=== PATIENT | female | born 1995 | race Caucasian/White ===

== ENCOUNTER 2016-11-17 20:52 | Emergency (ER) | payer BC ==
[~2016-11-17] VITALS: Ht 172.7 cm; Wt 71.1 kg
[2016-11-17 21:01] VITALS: TEMP 36.9; Ht 172.7 cm; Wt 71.1 kg
[2016-11-17] MEDS ORDERED: CEPHALEXIN MONOHYDRATE 250 MG CAP PO STA (21:31)
[2016-11-17] MEDS ORDERED: PRED20TA2 PO (21:32)
[2016-11-17] MEDS ORDERED: CEPH500C PO (21:33)
[2016-11-17] MEDS ORDERED: CEPHALEXIN 500MG HOME PACK 1 EA BTL PO STA (21:33)
--- NOTE | 2016-11-17 21:33 | EMERGENCY ROOM VISIT NOTE ---
History First contact with patient: 21:15 Chief Complaint: ALLERGIC REACTION Stated Complaint: REACTION TO BEE STING,SWELLING,NUMBNESS,PAIN,RASH History of Present Illness The patient is a 21 year old female who presents to the Emergency Room via private vehicle with complaints of "reaction to bee sting, swelling, numbness, pain, rash". The patient states that she was stung by a bee on the left lower leg about 5 days ago while hiking. She states that her friend was also stung. Since that time she's been doing well, but the area is now more red, starting to swell, has itching, pain and the redness is now worse. She denies any trouble breathing, chest pain or shortness of breath. She denies any fevers or chills. She denies chance of . She has never had this happen before. Review of Systems A complete 6-point Review of Systems was discussed with the patient, with pertinent positives and negatives listed in the History of Present Illness. All remaining Review of Systems questions can be considered negative unless otherwise specified. Past Medical/Surgical History No pertinent Family History High blood pressure, cancer. Social History Smoking Status: Never Smoker Patient lives alone, is currently employed. She denies tobacco and alcohol use. Current/Historical Medications Scheduled Cephalexin Monohydrate (Keflex), 500 MG PO QID Prednisone (Prednisone Tab), 2 TAB PO DAILY Physical Exam Vital Signs Date Time Temp Pulse Resp B/P (MAP) Pulse Ox O2 Delivery O2 Flow Rate FiO2 11/17/16 21:55 66 15 111/62 100 11/17/16 21:30 100 Room Air 11/17/16 21:01 36.9 66 18 110/65 100 Room Air Physical Exam VITAL SIGNS - Vital signs and nursing notes were reviewed. Stable. GENERAL - 21-year-old female appearing her stated age who is in no acute distress. Communicates well with provider and answers questions appropriately. SKIN - there is a small 5 cm x 6 cm erythematous and slightly raised region on the patient's left lateral/posterior distal calf region. This is of the left leg. There is no drainage noted. There is a small punctate region and is erythematous and believe to be the area where she was stung. The erythema is near this region. HEAD - NC/AT. EYES - Sclera anicteric. EARS - No deformities of external structures noted on gross examination bilaterally. NOSE - Midline and without cyanosis. MOUTH/OROPHARYNX - Without perioral cyanosis. EXTREMITIES - No clubbing or peripheral cyanosis. No pretibial edema present. Tenderness to palpation overlying the erythema. +5/5 strength noted in UE/LE bilaterally. No lymphangitic streaking. Medical Decision & Procedures Medications Administered Medications (Trade) Dose Ordered Sig/Tad Route Start Time Stop Time Status Last Admin Dose Admin Prednisone (PredniSONE TAB) 40 mg NOW STAT PO 11/17/16 21:31 11/17/16 21:32 DC 11/17/16 21:49 40 MG Diphenhydramine HCl (Benadryl Cap) 25 mg NOW STAT PO 11/17/16 21:31 11/17/16 21:32 DC 11/17/16 21:49 25 MG Cephalexin Monohydrate (Keflex Cap) 500 mg NOW STAT PO 11/17/16 21:31 11/17/16 21:32 DC 11/17/16 21:49 500 MG Cephalexin Monohydrate (Keflex 500MG Home Pack) 1 homepack NOW STAT PO 11/17/16 21:33 11/17/16 21:35 DC 11/17/16 21:50 1 HOMEPACK Medical Decision Patient was seen and evaluated as above. She presents to us today with left leg swelling/redness status post bee sting 5 days ago. I suspect she is likely experiencing a localized reaction secondary to the venom. The erythema is not consistent with that of sialitis, and I believe it to be a histamine response. Regardless, I will treat for any underlying potential infection therefore she' ll be given Keflex, but also prednisone and instructed to take Benadryl and Zyrtec for the reaction. She is to return with worsening. I believe she is stable for outpatient management, and believe that the above-mentioned medications will help with the reaction. There is no evidence of airway compromise or anaphylaxis. She is otherwise healthy. Tetanus is up-to-date. She was educated upon management, educated upon worrisome symptoms in which to return, had questions answered prior to discharge and was discharged home in good condition. In evaluation treatment this patient following differential diagnoses were entertained: Delayed histamine response, cellulitis, allergic reaction, among others. Impression Primary Impression: Allergic reaction Departure Information Dispostion Home / Self-Care Condition GOOD Prescriptions Cephalexin Monohydrate (Keflex) 500 Mg Cap 500 MG PO QID for 6 Days, #24 CAP Prov: Femi Argueta PA-C 11/17/16 Prednisone (Prednisone Tab) 20 Mg Tab 2 TAB PO DAILY for 4 Days, #8 TAB Prov: Femi Argueta PA-C 11/17/16 Referrals No Doctor, Assigned (PCP) Patient Instructions My [facility] Additional Instructions You have been treated in the Emergency Department for an Allergic Reaction. You have been treated and monitored in the Emergency Department appropriately. You should take Benadryl (diphenhydramine) 25- mg orally every 6 hours for the next 7 days. This medication is [id number] and you will NOT need a prescription to purchase this at your local pharmacy. You should continue taking the Benadryl for the COMPLETION of the 5-7 days. This is to prevent a rebound allergic reaction in the event that allergens are still present in your system. You should take Zantac (ranitidine) 75 mg orally once daily for the next 7 days. This medication is [id number] and you will NOT need a prescription to purchase this at your local pharmacy. You should continue taking the Zantac for the COMPLETION of the 7 days. This is to prevent a rebound allergic reaction in the event that allergens are still present in your system. Keflex 500mg every 6 hours for any potential infection You have been prescribed Prednisone 40 mg to be taken orally once a day for the next 5 days. This is an anti-inflammatory medicine to be used to help minimize your symptoms. You should take the COMPLETE course of the medication. Start tomorrow night. As with every Emergency Department visit, you should follow-up with your primary care provider in 2-3 days for reevaluation. Return to the Emergency Department if your current symptoms worsen despite treatment course outlined above, or if you develop any of the following symptoms : wheezing, tongue or face swelling, tightness in your throat, shortness of breath, or fainting.
[2016-11-17 21:55] VITALS: BP 111/62; PULSE 66; O2SAT 100
== END 2016-11-17 21:55 | disposition home or self-care (01) ==
LOC: C.EDB 20:54
DX: T63.441A Toxic effect of venom of bees, accidental (unintentional), initial encounter (principal); Z82.49 Family history of ischemic heart disease and other diseases of the circulatory system; Z80.9 Family history of malignant neoplasm, unspecified

== ENCOUNTER 2017-01-09 15:58 | Emergency (ER) | payer BC ==
[~2017-01-09] VITALS: Ht 172.7 cm; Wt 70.7 kg
[2017-01-09 16:05] VITALS: TEMP 36.5; Ht 172.7 cm; Wt 70.7 kg
[2017-01-09] MEDS ORDERED: ACETAMINOPHEN 500 MG TAB PO STA (16:42)
[2017-01-09] MEDS ORDERED: ONDANSETRON INJ 2 MG/ML 2 ML VIAL IV STA (16:42)
[2017-01-09] MEDS ORDERED: KETOROLAC TROMETHAMINE 30 MG/ML VIAL IV STA (16:42)
[2017-01-09] MEDS ORDERED: SODIUM CHLORIDE 0.9% 500ML 500 ML IV STA (16:55)
[2017-01-09] MEDS ORDERED: IBUP-1050 PO (17:10)
[2017-01-09] MEDS ORDERED: ACET-1256 PO (17:10)
[2017-01-09 17:21] LABS: BASO % 0.3 %; BASO ABS # 0.03 K/uL (0-0.2); COMPLETE YES; EOS % 0.1 %; HEMATOCRIT 38.3 % (37-47); IG% 0.1 %; LYMPH % 12.3 %; LYMPH ABS # 1.08 K/uL (1.2-3.4); MEAN CELL VOLUME 86.7 fL (80-100); MEAN CORPUSCULAR HEMOGLOBIN 28.5 pg (25-34); MEAN CORPUSCULAR HGB CONC 32.9 g/dl (32-36); MEAN PLATELET VOLUME 10.7 fL (7.4-10.4); MONO % 4.2 %; PLATELET COUNT 197 K/uL (130-400); RED BLOOD COUNT 4.42 M/uL (4.2-5.4); WHITE BLOOD COUNT 8.77 K/uL (4.8-10.8)
[2017-01-09 17:28] LABS: URINE APPEARANCE CLEAR (CLEAR); URINE BILIRUBIN NEG (NEG); URINE COLOR YELLOW; URINE EPITHELIAL CELL AUTO >30 /lpf (0-5); URINE NITRITE NEG (NEG); URINE PH 7.5 (4.5-7.5); URINE SPECIFIC GRAVITY 1.029 (1.000-1.030); UROBILINOGEN NEG (NEG); ZZUR CULT IF INDIC CLEAN CATCH NO
[2017-01-09 17:30] LABS: MANUAL MICROSCOPIC REQUIRED? NO; REVIEW REQ? NO
[2017-01-09 17:41] LABS: BUN/CREATININE RATIO 18.8 (10-20); CALCIUM 8.7 mg/dl (8.5-10.1); CREATININE 0.67 mg/dl (0.60-1.20); POTASSIUM 3.6 mmol/L (3.5-5.1)
[2017-01-09 18:18] VITALS: PULSE 54; O2SAT 100
--- NOTE | 2017-01-09 19:27 | DIAGNOSTIC IMAGING REPORT ---
PELVIC COMPLETE NON OB, TRANSVAG-FEMALE PELVIS CLINICAL HISTORY: 21 years-old Female presenting with LLQ abd pain, ovarian cyst, last menstrual period 01/09/2017. TECHNIQUE: Real-time grayscale and color and spectral Doppler ultrasound imaging of the pelvis was performed first using a transabdominal probe and subsequently transvaginal for better characterization. COMPARISON: None. FINDINGS: Uterus: Normal. Anteverted. The uterus measures 7.7 x 3.4 x 5.0 cm. Endometrial stripe measures 3 mm in thickness. Endometrium normal-appearing. Cervix normal. Right adnexa: Right ovary normal. Right ovary measures 3.0 x 2.0 x 3.0 cm. Normal color Doppler flow and arterial and venous waveforms within the ovarian parenchyma. Left adnexa: Left ovary normal. Left ovary measures 2.6 x 1.9 x 2.6 cm. Normal color Doppler flow and arterial and venous waveforms within the ovarian parenchyma. In the left adnexa and extending to the midline are 2 anechoic cystic appearing structures that are distinctly separate from the left ovary and do not clearly demonstrate a cogwheel mucosal pattern or a connection to one another to suggest definitively a fallopian tube morphology. The largest of these measures 3.3 cm. Other: Trace free fluid, likely physiologic. IMPRESSION: 1. No evidence of ovarian torsion. Normal ovaries and uterus. However, 2 cystic structures in the left adnexa appear distinctly separate from the left ovary and do not have a morphology that is characteristic of a dilated fallopian tube. Although hydrosalpinx remains a differential consideration, these could represent para ovarian cyst among other diagnostic considerations. Gynecologic consultation and follow-up ultrasound in 4-6 weeks recommended to confirm stability and/or contrast enhanced pelvic MR. Electronically signed by: Ehsan Dickerson M.D. 01/09/2017 7:25 PM Dictated Date/Time: 01/09/2017 7:20 PM
--- NOTE | 2017-01-09 20:16 | EMERGENCY ROOM VISIT NOTE ---
History Report prepared by Joseph: Mikal Escobar Under the Supervision of: Dr. Kate Hicks M.D. First contact with patient: 16:42 Chief Complaint: ABDOMINAL PAIN Stated Complaint: LLQ ABDOMINAL PAIN Nursing Triage Summary: having lower abdominal pain. period began today. "I have never had cramps like this before." patient denies any chance of being History of Present Illness The patient is a 21 year old female who presents to the Emergency Room with complaints of constant left lower abdominal pain beginning shortly prior to arrival. She describes her pain as "sharp". She also complains of left leg numbness. The patient states that she began her menstrual period yesterday, but states that her symptoms to not feel like typical menstrual cramps. She denies chance of . She has a family history of ovarian cancer, and ovarian cyst. The patient notes that she recently flew back to [place] from home. She is not on control. Source of History: patient Onset: Shortly prior to arrival Position: abdomen (left lower) Quality: sharp Timing: constant Associated Symptoms: + numbness (left leg) Review of Systems See HPI for pertinent positives & negatives. A total of 10 systems reviewed and were otherwise negative. Past Medical & Surgical Medical Problems: (1) No Known Active Medical Problems Family History No pertinent family history stated. Social History Smoking Status: Never Smoker Marital Status: single Occupation Status: [employer] student Current/Historical Medications Scheduled Ondasetron Odt (Zofran Odt), 4 MG SL Q6H Scheduled PRN Acetaminophen (Tylenol), 1,000 MG PO UD PRN for Pain Hydrocodone/Acetaminophen 5MG/325MG ([place] 5MG/325MG), 1-2 TABLET PO Q4H PRN for Pain Ibuprofen (Advil), 400 MG PO UD PRN for Pain Allergies Coded Allergies: No Known Allergies (Unverified , 01/09/17) Physical Exam Vital Signs Date Time Temp Pulse Resp B/P (MAP) Pulse Ox O2 Delivery O2 Flow Rate FiO2 01/09/17 20:40 96/71 01/09/17 18:18 54 14 107/64 100 01/09/17 16:05 36.5 62 18 136/63 100 Room Air Physical Exam Vital signs reviewed. General: Well-appearing female, in no significant distress. HEENT: No scleral icterus, PERRLA, neck supple. Atraumatic. Cardiovascular: Regular rate and rhythm, no extra sounds. Pulmonary: Clear to auscultation bilaterally, normal work of breathing. Abdomen: Soft, nondistended, positive bowel sounds. Mild tenderness to the left lower quadrant. Pelvic: Normal female external genitalia. No lesions or discharge. No cervical motion tenderness. Musculoskeletal: Atraumatic, no peripheral edema. Neurologic: Patient awake alert and oriented x 3. Skin: Warm, dry, no rash Medical Decision & Procedures ER Provider Diagnostic Interpretation: Radiology results as stated below per my review and radiologist interpretation: PELVIC COMPLETE NON OB, TRANSVAG-FEMALE PELVIS FINDINGS: Uterus: Normal. Anteverted. The uterus measures 7.7 x 3.4 x 5.0 cm. Endometrial stripe measures 3 mm in thickness. Endometrium normal-appearing. Cervix normal. Right adnexa: Right ovary normal. Right ovary measures 3.0 x 2.0 x 3.0 cm. Normal color Doppler flow and arterial and venous waveforms within the ovarian parenchyma. Left adnexa: Left ovary normal. Left ovary measures 2.6 x 1.9 x 2.6 cm. Normal color Doppler flow and arterial and venous waveforms within the ovarian parenchyma. In the left adnexa and extending to the midline are 2 anechoic cystic appearing structures that are distinctly separate from the left ovary and do not clearly demonstrate a cogwheel mucosal pattern or a connection to one another to suggest definitively a fallopian tube morphology. The largest of these measures 3.3 cm. Other: Trace free fluid, likely physiologic. IMPRESSION: 1. No evidence of ovarian torsion. Normal ovaries and uterus. However, 2 cystic structures in the left adnexa appear distinctly separate from the left ovary and do not have a morphology that is characteristic of a dilated fallopian tube. Although hydrosalpinx remains a differential consideration, these could represent para ovarian cyst among other diagnostic considerations. Gynecologic consultation and follow-up ultrasound in 4-6 weeks recommended to confirm stability and/or contrast enhanced pelvic MR. Electronically signed by: Ehsan Dickerson M.D. 01/09/2017 7:25 PM Laboratory Results 01/09/17 17:05 Red Blood Count 4.42, Mean Corpuscular Volume 86.7, Mean Corpuscular Hemoglobin 28.5, Mean Corpuscular Hemoglobin Concent 32.9, Mean Platelet Volume 10.7, Neutrophils (%) (Auto) 83.0, Lymphocytes (%) (Auto) 12.3, Monocytes (%) (Auto) 4.2, Eosinophils (%) (Auto) 0.1, Basophils (%) (Auto) 0.3, Neutrophils # (Auto) 7.27, Lymphocytes # (Auto) 1.08, Monocytes # (Auto) 0.37, Eosinophils # (Auto) 0.01, Basophils # (Auto) 0.03 01/09/17 17:05 Test 01/09/17 17:05 White Blood Count 8.77 K/uL (4.8-10.8) Red Blood Count 4.42 M/uL (4.2-5.4) Hemoglobin 12.6 g/dL (12.0-16.0) Hematocrit 38.3 % (37-47) Mean Corpuscular Volume 86.7 fL (80-100) Mean Corpuscular Hemoglobin 28.5 pg (25-34) Mean Corpuscular Hemoglobin Concent 32.9 g/dl (32-36) Platelet Count 197 K/uL (130-400) Mean Platelet Volume 10.7 fL (7.4-10.4) Neutrophils (%) (Auto) 83.0 % Lymphocytes (%) (Auto) 12.3 % Monocytes (%) (Auto) 4.2 % Eosinophils (%) (Auto) 0.1 % Basophils (%) (Auto) 0.3 % Neutrophils # (Auto) 7.27 K/uL (1.4-6.5) Lymphocytes # (Auto) 1.08 K/uL (1.2-3.4) Monocytes # (Auto) 0.37 K/uL (0.11-0.59) Eosinophils # (Auto) 0.01 K/uL (0-0.5) Basophils # (Auto) 0.03 K/uL (0-0.2) RDW Standard Deviation 43.0 fL (36.4-46.3) RDW Coefficient of Variation 13.4 % (11.5-14.5) Immature Granulocyte % (Auto) 0.1 % Immature Granulocyte # (Auto) 0.01 K/uL (0.00-0.02) Urine Color YELLOW Urine Appearance CLEAR (CLEAR) Urine pH 7.5 (4.5-7.5) Urine Specific [place] 1.029 (1.000-1.030) Urine Protein NEG (NEG) Urine Glucose (UA) NEG (NEG) Urine Ketones 1+ (NEG) Urine Occult Blood NEG (NEG) Urine Nitrite NEG (NEG) Urine Bilirubin NEG (NEG) Urine Urobilinogen NEG (NEG) Urine Leukocyte Esterase TRACE (NEG) Urine WBC (Auto) 1-5 /hpf (0-5) Urine RBC (Auto) 0-4 /hpf (0-4) Urine Hyaline Casts (Auto) 1-5 /lpf (0-5) Urine Epithelial Cells (Auto) >30 /lpf (0-5) Urine Bacteria (Auto) NEG (NEG) Urine Test NEG (NEG) Anion Gap 7.0 mmol/L (3-11) Est Creatinine Clear Calc Drug Dose 135.1 ml/min Estimated GFR () 146.7 Estimated GFR (Non- 126.5 BUN/Creatinine Ratio 18.8 (10-20) Calcium Level 8.7 mg/dl (8.5-10.1) Total Bilirubin 0.7 mg/dl (0.2-1) Direct Bilirubin 0.1 mg/dl (0-0.2) Aspartate Amino Transf (AST/SGOT) 14 U/L (15-37) Alanine Aminotransferase (ALT/SGPT) 16 U/L (12-78) Alkaline Phosphatase 53 U/L (45-117) Total Protein 7.5 gm/dl (6.4-8.2) Albumin 4.1 gm/dl (3.4-5.0) Lipase 106 U/L (73-393) Date/Time Source Procedure Growth Status 01/09/17 19:50 Vaginal Swab Trichomonas Preparation - Final Complete Laboratory results per my review. Medications Administered Medications (Trade) Dose Ordered Sig/Tad Route Start Time Stop Time Status Last Admin Dose Admin Ondansetron HCl (Zofran Inj) 4 mg NOW STAT IV 01/09/17 16:42 01/09/17 16:43 DC 01/09/17 18:14 4 MG Ketorolac Tromethamine (Toradol Inj) 30 mg NOW STAT IV 01/09/17 16:42 01/09/17 16:43 DC 01/09/17 18:16 30 MG Sodium Chloride 500 ml @ 999 mls/hr Q31M STAT IV 01/09/17 16:55 01/09/17 17:25 DC 01/09/17 18:14 999 MLS/HR ED Course 1651: Past medical records reviewed. The patient was evaluated in room B4B. A complete history and physical examination was performed. Ordered Tylenol Tab 1000 mg PO, Toradol Inj 30 mg IV, Zofran Inj 4 mg IV. 1654: Ordered Sodium Chloride 500 ml @ 999 mls/hr IV. 1951: I conducted a pelvic exam on the patient. 2009: Upon reevaluation, the patient appeared to have improvement of her symptoms. I discussed findings with her. She verbalized agreement of the treatment plan. The patient was discharged home. Medical Decision Differential diagnosis: Etiologies such as appendicitis, diverticulitis, PUD, biliary pathology, UTI, pancreatitis, obstruction, mesenteric ischemia, aortic pathology, infections, inflammatory bowel disease, renal colic, as well as others were entertained. This patient was evaluated and appeared to be in some discomfort. IV access was obtained and laboratory work was drawn. The patient was given IV Toradol and IV Zofran. She was hydrated with normal saline solution. Pelvic ultrasound was performed and reveals 2 para ovarian cysts. Urinalysis was obtained and is negative. test is negative. Pelvic exam was performed and reveals no discharge or lesions. Cultures were obtained however according to the lab the swabs were switched and they were not able to be run. I do not think the patient is high risk for PID as she has not been sexually active in over one year. She was informed of the findings. Patient was advised of the situation with microbiology. She will follow-up with [facility] as soon as possible for further management. The patient was discharged with a copy of her ultrasound on disc and will return to the emergency department for worsening of symptoms or any medical concerns. Medication Reconcilliation Current Medication List: was personally reviewed by me Blood Pressure Screening Patient's blood pressure: Elevated blood pressure Blood pressure disposition: Elevated BP felt to be situational Impression Primary Impression: Cystic lesion of pelvic viscera Scribe Attestation The scribe's documentation has been prepared under my direction and personally reviewed by me in its entirety. I confirm that the note above accurately reflects all work, treatment, procedures, and medical decision making performed by me. Departure Information Dispostion Home / Self-Care Referrals No Doctor, Assigned (PCP) Forms HOME CARE DOCUMENTATION FORM, IMPORTANT VISIT INFORMATION Patient Instructions My [facility] Additional Instructions Diagnosis: Paraovarian cyst Please follow-up with [facility] in 4-6 weeks for repeat ultrasound and reevaluation. Ibuprofen 600 mg every 6 hours as needed for pain with food. Please drink plenty of clear fluids. Return to the ER for worsening of symptoms or any medical concerns.
[2017-01-09 20:40] VITALS: BP 96/71
[2017-01-10] MEDS ORDERED: HYDR-5688 PO (07:32)
[2017-01-10] MEDS ORDERED: ONDA4TAB10 SL (07:42)
--- NOTE | 2017-01-12 16:39 | Pharmacy Progress Note ---
ED Pharmacist Culture FollowUp Date of Service: Jan 12, 2017. Patient grew lactobacillus and Gardnerella in urine, which may be indicative of normal vaginal eboni. Called patient and she reported no increased discharge or other UTI symptoms, just pelvic pain which is most likely due to ovarian cyst. Discussed with Dr. Hicks and there is no need for antibiotics at this time as patient is asymptomatic from a UTI perspective.
== END 2017-01-09 20:40 | disposition home or self-care (01) ==
LOC: C.EDB 15:59
DX: N94.89 Other specified conditions associated with female genital organs and menstrual cycle (principal); N83.209 Unspecified ovarian cyst, unspecified side

== ENCOUNTER 2017-01-10 01:20 | Emergency (ER) | payer BC ==
[~2017-01-10] VITALS: Ht 172.7 cm; Wt 71.4 kg
[~2017-01-10 01:20] MED LIST: ACET-1256 PO; IBUP-1050 PO
[2017-01-10 01:33] VITALS: Ht 172.7 cm; Wt 71.4 kg
[2017-01-10] MEDS ORDERED: KETOROLAC TROMETHAMINE 15 MG/ML VIAL IV STA (02:10)
[2017-01-10 02:47] LABS: BASO % 0.4 %; BASO ABS # 0.04 K/uL (0-0.2); COMPLETE YES; EOS % 0.6 %; HEMATOCRIT 39.5 % (37-47); IG% 0.3 %; LYMPH % 14.8 %; LYMPH ABS # 1.66 K/uL (1.2-3.4); MEAN CELL VOLUME 86.8 fL (80-100); MEAN CORPUSCULAR HEMOGLOBIN 28.8 pg (25-34); MEAN CORPUSCULAR HGB CONC 33.2 g/dl (32-36); MEAN PLATELET VOLUME 11.2 fL (7.4-10.4); MONO % 7.7 %; NEUT % 76.2 %; PLATELET COUNT 210 K/uL (130-400); RED BLOOD COUNT 4.55 M/uL (4.2-5.4); WHITE BLOOD COUNT 11.24 K/uL (4.8-10.8)
[2017-01-10] MEDS ORDERED: ONDANSETRON INJ 2 MG/ML 2 ML VIAL IV STA (03:00)
[2017-01-10] MEDS ORDERED: MoRPHine SULFATE 10 MG/ML CARP/VIAL IV STA (03:00)
[2017-01-10 03:13] LABS: BUN/CREATININE RATIO 16.6 (10-20); CALCIUM 8.6 mg/dl (8.5-10.1); CREATININE 0.7 mg/dl (0.60-1.20); POTASSIUM 3.5 mmol/L (3.5-5.1)
[2017-01-10 03:16] LABS: ALB/GLOB RATIO 1.2 (0.9-2)
[2017-01-10 03:33] LABS: URINE APPEARANCE CLEAR (CLEAR); URINE BILIRUBIN NEG (NEG); URINE COLOR YELLOW; URINE NITRITE NEG (NEG); URINE PH 5.5 (4.5-7.5); URINE SPECIFIC GRAVITY 1.024 (1.000-1.030); UROBILINOGEN NEG (NEG); ZZUR CULT IF INDIC CLEAN CATCH YES
[2017-01-10 03:44] LABS: MANUAL MICROSCOPIC REQUIRED? NO; REVIEW REQ? NO
--- NOTE | 2017-01-10 04:20 | EMERGENCY ROOM VISIT NOTE ---
History First contact with patient: 01:48 Chief Complaint: ABDOMINAL PAIN Stated Complaint: PARAOVARIAN CYSTS,WORSENED PAIN,SEEN EARLIER TODAY Nursing Triage Summary: Pt here earlier and was dx'd with left ovarian cyst. Pt discharged and took ibuprofen as directed with no relief of pain. Pt currently rates pain @ 9/10 with nausea. History of Present Illness The patient is a 21 year old female who presents to the Emergency Room with complaints of left pelvic pain. The patient states that she was seen here earlier today due to the pain and diagnosed with paraovarian cyst. She states that the pain had improved when she went home, then returned. She took some ibuprofen but states the pain is still worsening. She reports associated nausea without vomiting. The pain started tonight. She states that the pain is now worse than it was before. She rates her discomfort an 8/10 and states the pain is sharp. She denies history of ovarian cysts. She denies urinary symptoms, fevers or changes in bowel movements. Review of Systems A complete 10 point review of systems was reviewed with the patient with pertinent positives and negatives as per history of present illness. All else were negative. Past Medical/Surgical History Medical Problems: (1) No Known Active Medical Problems Social History Smoking Status: Never Smoker Occupation Status: [employer] student Current/Historical Medications Scheduled Ondasetron Odt (Zofran Odt), 4 MG SL Q6H Scheduled PRN Acetaminophen (Tylenol), 1,000 MG PO UD PRN for Pain Hydrocodone/Acetaminophen 5MG/325MG ([place] 5MG/325MG), 1-2 TABLET PO Q4H PRN for Pain Ibuprofen (Advil), 400 MG PO UD PRN for Pain Physical Exam Vital Signs Date Time Temp Pulse Resp B/P (MAP) Pulse Ox O2 Delivery O2 Flow Rate FiO2 01/10/17 08:03 63 16 104/62 99 Room Air 01/10/17 07:30 64 16 108/64 97 Room Air 01/10/17 07:09 66 16 110/66 97 Room Air 01/10/17 06:00 56 16 105/66 97 Room Air 01/10/17 05:05 58 16 106/69 99 Room Air 01/10/17 03:17 57 18 122/51 99 Room Air 01/10/17 01:33 36.9 71 18 116/76 98 Room Air Physical Exam VITALS: Vitals are noted on the nurse's note and reviewed by myself. Vital signs stable. GENERAL: This is a 21-year-old female, tearful, appears to be in pain, anxious appearing, well-developed well-nourished. HEART: Regular rate and rhythm without murmurs gallops or rubs. LUNGS: Clear to auscultation bilaterally without wheezes, rales or rhonchi. ABDOMEN: Positive bowel sounds x 4. Soft, minimal tenderness in the left lower quadrant.. No guarding rebound tenderness. NEURO: Patient was alert and oriented to person place and time. Medical Decision & Procedures ER Provider Diagnostic Interpretation: US PELVIC/ENDOVAG: Blood flow seen to the bilateral ovaries. Small amount of complex free fluid. In the left adnexa is a mass estimated to measure 6.7 cm in maximum dimension which has 2 separate cysts each measuring about 3 cm in size. Present on prior. If further imaging desired, could further characterize with MRI as discussed on prior. Also, [employer] consult suggested as discussed on previous. Radiologist: Junior Cleaning MD Laboratory Results 01/10/17 02:35 Red Blood Count 4.55, Mean Corpuscular Volume 86.8, Mean Corpuscular Hemoglobin 28.8, Mean Corpuscular Hemoglobin Concent 33.2, Mean Platelet Volume 11.2, Neutrophils (%) (Auto) 76.2, Lymphocytes (%) (Auto) 14.8, Monocytes (%) (Auto) 7.7, Eosinophils (%) (Auto) 0.6, Basophils (%) (Auto) 0.4, Neutrophils # (Auto) 8.57, Lymphocytes # (Auto) 1.66, Monocytes # (Auto) 0.87, Eosinophils # (Auto) 0.07, Basophils # (Auto) 0.04 01/10/17 02:35 Test 01/10/17 02:35 01/10/17 03:15 White Blood Count 11.24 K/uL (4.8-10.8) Red Blood Count 4.55 M/uL (4.2-5.4) Hemoglobin 13.1 g/dL (12.0-16.0) Hematocrit 39.5 % (37-47) Mean Corpuscular Volume 86.8 fL (80-100) Mean Corpuscular Hemoglobin 28.8 pg (25-34) Mean Corpuscular Hemoglobin Concent 33.2 g/dl (32-36) Platelet Count 210 K/uL (130-400) Mean Platelet Volume 11.2 fL (7.4-10.4) Neutrophils (%) (Auto) 76.2 % Lymphocytes (%) (Auto) 14.8 % Monocytes (%) (Auto) 7.7 % Eosinophils (%) (Auto) 0.6 % Basophils (%) (Auto) 0.4 % Neutrophils # (Auto) 8.57 K/uL (1.4-6.5) Lymphocytes # (Auto) 1.66 K/uL (1.2-3.4) Monocytes # (Auto) 0.87 K/uL (0.11-0.59) Eosinophils # (Auto) 0.07 K/uL (0-0.5) Basophils # (Auto) 0.04 K/uL (0-0.2) RDW Standard Deviation 43.0 fL (36.4-46.3) RDW Coefficient of Variation 13.6 % (11.5-14.5) Immature Granulocyte % (Auto) 0.3 % Immature Granulocyte # (Auto) 0.03 K/uL (0.00-0.02) Anion Gap 6.0 mmol/L (3-11) Est Creatinine Clear Calc Drug Dose 129.3 ml/min Estimated GFR () 144.6 Estimated GFR (Non- 124.7 BUN/Creatinine Ratio 16.6 (10-20) Calcium Level 8.6 mg/dl (8.5-10.1) Total Bilirubin 0.7 mg/dl (0.2-1) Aspartate Amino Transf (AST/SGOT) 12 U/L (15-37) Alanine Aminotransferase (ALT/SGPT) 16 U/L (12-78) Alkaline Phosphatase 55 U/L (45-117) Total Protein 7.4 gm/dl (6.4-8.2) Albumin 4.0 gm/dl (3.4-5.0) Globulin 3.4 gm/dl (2.5-4.0) Albumin/Globulin Ratio 1.2 (0.9-2) Urine Color YELLOW Urine Appearance CLEAR (CLEAR) Urine pH 5.5 (4.5-7.5) Urine Specific [place] 1.024 (1.000-1.030) Urine Protein NEG (NEG) Urine Glucose (UA) NEG (NEG) Urine Ketones NEG (NEG) Urine Occult Blood 3+ (NEG) Urine Nitrite NEG (NEG) Urine Bilirubin NEG (NEG) Urine Urobilinogen NEG (NEG) Urine Leukocyte Esterase SMALL (NEG) Urine WBC (Auto) 10-30 /hpf (0-5) Urine RBC (Auto) >30 /hpf (0-4) Urine Hyaline Casts (Auto) 0 /lpf (0-5) Urine Epithelial Cells (Auto) 10-20 /lpf (0-5) Urine Bacteria (Auto) NEG (NEG) Medications Administered Medications (Trade) Dose Ordered Sig/Tad Route Start Time Stop Time Status Last Admin Dose Admin Ketorolac Tromethamine (Toradol Inj) 15 mg NOW STAT IV 01/10/17 02:10 01/10/17 02:11 DC 01/10/17 02:36 15 MG Morphine Sulfate (MoRPHine SULFATE INJ) 6 mg NOW STAT IV 01/10/17 03:00 01/10/17 03:01 DC 01/10/17 03:35 6 MG Ondansetron HCl (Zofran Inj) 4 mg NOW STAT IV 01/10/17 03:00 01/10/17 03:01 DC 01/10/17 03:33 4 MG Morphine Sulfate (MoRPHine SULFATE INJ) 4 mg NOW STAT IV 01/10/17 05:23 01/10/17 05:24 DC 01/10/17 05:55 4 MG ED Course The patient was evaluated as above. Labs were drawn and IV access was obtained. Patient was medicated with 30 mg Toradol IV patient was reevaluated and had no relief of her pain. She was given a dose of IV morphine. Pelvic ultrasound was performed and read by radiology as above. Patient states she is having some increased pain after the ultrasound. She was given an additional dose of morphine. Patient was reevaluated and findings were discussed. She is feeling much better at this time. Case was discussed with Dr. Javed of [facility]. She recommends office follow-up. I had a lengthy conversation with the patient's mother regarding the patient's visit and treatment plan. Discharge instructions were reviewed with the patient. The patient verbalized understanding of my assessment and treatment plan and was discharged home in good condition. Medical Decision Differential diagnosis includes ovarian cyst, ovarian torsion, ectopic , kidney stone, appendicitis, gastroenteritis, among others. The patient is a 21-year-old female who presents today complaining of worsening left pelvic pain. The patient was seen in the emergency department earlier in the day for this pain as well. She had an ultrasound which showed 2 left paraovarian cysts. Patient is complaining of worsening pain at this time. She does have a mild leukocytosis which is likely secondary to stress reaction. She has a nontender abdomen. She was complaining of significant pain and was tearful and appeared to be in distress on initial examination. She was given Toradol and morphine and eventually have some relief of her pain. A repeat ultrasound was performed due to patient's level of pain and this showed similar findings to previous. There was no evidence of ovarian torsion. The patient was reassured. I had a lengthy discussion with the patient's mother regarding the findings. The case was discussed with [facility] squadron worker, who recommended office. The patient was encouraged to continue ibuprofen for pain and was given a small amount of [place] to be used for breakthrough pain. The patient's case was reviewed with Dr. Mahoney, ED attending physician, who agreed with my assessment and treatment plan. Based on the patient's presentation and work up, I feel the patient is stable for outpatient treatment. The patient was educated to return to the emergency department for any worsening of their current condition or new/concerning symptoms. She will follow up with [facility]. [place] Drug Monitoring Program Search Results: patient reviewed within database, no issues identified Medication Reconcilliation Current Medication List: was personally reviewed by me Blood Pressure Screening Patient's blood pressure: Normal blood pressure Impression Primary Impression: Pelvic cyst Departure Information Dispostion Home / Self-Care Condition GOOD Prescriptions Ondasetron Odt (ZOFRAN ODT) 4 Mg Tab 4 MG SL Q6H for Nausea, #10 TAB Prov: Sarai Isabel PA-C 01/10/17 Hydrocodone/Acetaminophen 5MG/325MG ([place] 5MG/325MG) Tab 1-2 TABLET PO Q4H Y for Pain, #15 TAB For Initial Treatment Prov: Sarai Isabel PA-C 01/10/17 Referrals [facility] (PCP) Lis Javed D.O. Patient Instructions My [facility] Additional Instructions You have been treated in the Emergency Department for your Abdominal Pain. Laboratory results and imaging studies have ruled out any emergent causes for your abdominal pain which would warrant admission or surgery. You have been prescribed [place] to be used for pain control. This is a narcotic medication. You cannot drive or consume alcohol while on this medicine. This medicine should only be used for pain that cannot be controlled with over-the- counter pain medicines. You have been prescribed Zofran to be used for any nausea or vomiting. Take as prescribed. For pain control, you can use the following unhr-lal-bkfwrok medicines (if >12 yo): - Regular strength (325mg/tab) Tylenol (acetaminophen) 2 tabs every 4-6 hours as needed. Do not exceed 12 tablets in a 24 hour period. Avoid taking more than 4 grams (4000 mg) of Tylenol per day. This includes any other sources of acetaminophen you may take on a regular basis. - Regular strength (200 mg/tab) Advil (ibuprofen) 1-2 tabs every 4-6 hours as needed. Do not exceed a dose of 3200 mg per day. Drink plenty of water and stay well hydrated. As with any trip to the Emergency Department, you should follow-up with your Primary Care Provider from today's visit. You may call [facility] (Dr. Javed's office) to schedule follow up locally. Return to the emergency department if your symptoms persist despite treatment plan outlined above or if the following symptoms occur: worsening pain, vomiting , fever, or any other new/concerning symptoms.
[2017-01-10] MEDS ORDERED: MoRPHine SULFATE 4 MG/ML 1 ML CARP\\VIAL IV STA (05:23)
[2017-01-10] MEDS ORDERED: HYDR-5688 PO (07:32)
[2017-01-10] MEDS ORDERED: ONDA4TAB10 SL (07:42)
--- NOTE | 2017-01-10 08:05 | DIAGNOSTIC IMAGING REPORT ---
PELVIC ULTRASOUND, TRANSABDOMINAL AND TRANSVAGINAL HISTORY: Left lower quadrant abdominal pain. COMPARISON: Pelvic ultrasound 01/09/2017. FINDINGS: Uterus: Unremarkable. Endometrial stripe: 5 mm. Right ovary: Normal in size and demonstrates normal color flow. Left ovary: Normal in size and demonstrates normal color flow. Miscellaneous:Small amount of complex fluid within the pelvis. There is again noted a 6.7 x 3.0 x 4.0 cm masslike abnormality within the left adnexa containing 2 cysts which measure 3 cm. This appears to be separate from the left ovary. IMPRESSION: 1. The uterus and ovaries appear unremarkable. 2. There is again noted a 6.7 cm cystic mass within the left adnexa which appears separate from the left ovary. This is unchanged from the prior study. A contrast enhanced CT is recommended for further evaluation. Please correlate with a test to exclude the less likely possibility of an ectopic . 3. Small amount of complex fluid suggestive of hemoperitoneum. Electronically signed by: Toby Westbrook M.D. 01/10/2017 8:03 AM Dictated Date/Time: 01/10/2017 7:58 AM
[2017-01-10 08:06] VITALS: BP 104/62; PULSE 63; TEMP 36.9; O2SAT 99
== END 2017-01-10 08:14 | disposition home or self-care (01) ==
LOC: C.EDB 01:22 → C.EDA 08:14
DX: N83.8 Other noninflammatory disorders of ovary, fallopian tube and broad ligament (principal)

== ENCOUNTER 2017-01-12 18:50 | Emergency (ER) | payer BC ==
[~2017-01-12] VITALS: Ht 172.7 cm; Wt 72.1 kg
[~2017-01-12 18:50] MED LIST changes: +HYDR-5688 PO; +ONDA4TAB10 SL
[2017-01-12 18:52] VITALS: TEMP 36.8; Ht 172.7 cm; Wt 72.1 kg
--- NOTE | 2017-01-12 19:25 | EMERGENCY ROOM VISIT NOTE ---
History First contact with patient: 18:58 Chief Complaint: ABDOMINAL PAIN Stated Complaint: LOWER ABDOMINAL PAIN,ULTRASOUND,PARAOVARIUAN CYST Nursing Triage Summary: Pt reports left sided ovarian cysts. States pain is tolerable at 4/10 while on narcotics but severe when off. Pt currently taking norco to manage pain. Called OB/GYNs office and told to come to ER for repeat ultrasound to determine if pt will require surgery. History of Present Illness The patient is a 21 year old female who presents to the Emergency Room with complaints of ongoing LLQ pain. Patient has been here in the last few days and was found to have a large para-ovarian cyst in the LLQ. Per patient, Dr. Javed had called her earlier today and said she could either return to the ED to have repeat scans and possible surgery in the next few days, or to have scheduled surgery on Jan 19. Patient decided that since her pain is still severe without pain medications, she opted to have repeat scans and possible surgery as soon as possible. Review of Systems Constitutional: No fever, No chills, No sweats, No weight loss, No weakness , No fatigue, No problem reported Respiratory: No cough, No sputum, No wheezing, No shortness of breath, No dyspnea on exertion, No dyspnea at rest, No hemoptysis, No problem reported Cardiovascular: No chest pain, No orthopnea, No PND, No edema, No claudication, No palpitations, No problem reported Abdomen: + pain, No nausea, No vomiting, No diarrhea, No constipation, No GI bleeding, No problem reported Genitourinary - Female: No dysuria, No urinary frequency, No urinary urgency , No urinary incontinence, No urinary retention, No hematuria, No dysmenorrhea, No menorrhagia, No metrorrhagia, No rash, No vaginal bleeding, No vaginal discharge, No vaginal itching, No vulvodynia, No , No problem reported Past Medical/Surgical History Medical Problems: (1) Adnexal mass (2) Ovarian cyst Social History Smoking Status: Never Smoker Occupation Status: [employer] student Current/Historical Medications Scheduled Ondasetron Odt (Zofran Odt), 4 MG SL Q6H Scheduled PRN Acetaminophen (Tylenol), 1,000 MG PO UD PRN for Pain Hydrocodone/Acetaminophen 5MG/325MG ([place] 5MG/325MG), 1-2 TABLET PO Q4H PRN for Pain Ibuprofen (Advil), 400 MG PO UD PRN for Pain Physical Exam Vital Signs Date Time Temp Pulse Resp B/P (MAP) Pulse Ox O2 Delivery O2 Flow Rate FiO2 01/12/17 22:13 63 15 132/69 98 Room Air 01/12/17 20:18 55 18 110/70 100 Room Air 01/12/17 18:52 36.8 98 18 116/67 98 Room Air Pain Rating (0-10): 4 Physical Exam GENERAL: Awake, alert, well-appearing, in no distress HENT: Normocephalic, atraumatic. Oropharynx unremarkable. EYES: Normal conjunctiva. Sclera non-icteric. NECK: Supple. No nuchal rigidity. FROM. No JVD. RESPIRATORY: Clear to auscultation. CARDIAC: Regular rate, normal rhythm. Extremities warm and well perfused. Pulses equal. ABDOMEN: Soft, non-distended. tenderness to palpation in LLQ and keisha- umbilically. No rebound or guarding. No masses. RECTAL: Deferred. MUSCULOSKELETAL: Chest examination reveals no tenderness. The back is symmetrical on inspection without obvious abnormality. There is no CVA tenderness to palpation. No joint edema. LOWER EXTREMITIES: Calves are equal size bilaterally and non-tender. No edema. No discoloration. NEURO: Normal sensorium. No sensory or motor deficits noted. SKIN: No rash or jaundice noted. Medical Decision & Procedures ER Provider Diagnostic Interpretation: PELVIC ULTRASOUND, TRANSABDOMINAL AND TRANSVAGINAL HISTORY: Known paraovarian cyst 6.7 cm. Left lower quadrant pelvic pain COMPARISON: Pelvic ultrasound 01/10/2017. FINDINGS: The uterus and ovaries are within normal limits. Endometrial stripe measures 5 mm in thickness. Within the left adnexa there is again noted a 5.2 x 3.8 x 4.7 cm solid and cystic lesion. The 2 dominant cysts measures 2.8 and 2.3 cm. This also contains hyperechoic soft tissue, which could represent fat in the setting of a dermoid. Small amount of complex fluid within the pelvis. IMPRESSION: 1. Overall, no significant change compared to the prior study. 2. The uterus and ovaries are within normal limits. 3. No significant change in the 5.2 x 3.8 x 4.7 cm solid and cystic mass within the left adnexa. This could represent a dermoid. Follow-up nonemergent pelvis CT can be performed for further evaluation. 4. Small amount of complex fluid within the pelvis persists. Laboratory Results 01/12/17 19:22 Red Blood Count 3.73, Mean Corpuscular Volume 87.9, Mean Corpuscular Hemoglobin 28.7, Mean Corpuscular Hemoglobin Concent 32.6, Mean Platelet Volume 10.5, Neutrophils (%) (Auto) 66.2, Lymphocytes (%) (Auto) 22.0, Monocytes (%) (Auto) 10.5, Eosinophils (%) (Auto) 0.8, Basophils (%) (Auto) 0.4, Neutrophils # (Auto ) 4.74, Lymphocytes # (Auto) 1.58, Monocytes # (Auto) 0.75, Eosinophils # (Auto ) 0.06, Basophils # (Auto) 0.03 01/12/17 19:22 Test 01/12/17 19:22 White Blood Count 7.17 K/uL (4.8-10.8) Red Blood Count 3.73 M/uL (4.2-5.4) Hemoglobin 10.7 g/dL (12.0-16.0) Hematocrit 32.8 % (37-47) Mean Corpuscular Volume 87.9 fL (80-100) Mean Corpuscular Hemoglobin 28.7 pg (25-34) Mean Corpuscular Hemoglobin Concent 32.6 g/dl (32-36) Platelet Count 164 K/uL (130-400) Mean Platelet Volume 10.5 fL (7.4-10.4) Neutrophils (%) (Auto) 66.2 % Lymphocytes (%) (Auto) 22.0 % Monocytes (%) (Auto) 10.5 % Eosinophils (%) (Auto) 0.8 % Basophils (%) (Auto) 0.4 % Neutrophils # (Auto) 4.74 K/uL (1.4-6.5) Lymphocytes # (Auto) 1.58 K/uL (1.2-3.4) Monocytes # (Auto) 0.75 K/uL (0.11-0.59) Eosinophils # (Auto) 0.06 K/uL (0-0.5) Basophils # (Auto) 0.03 K/uL (0-0.2) RDW Standard Deviation 42.9 fL (36.4-46.3) RDW Coefficient of Variation 13.4 % (11.5-14.5) Immature Granulocyte % (Auto) 0.1 % Immature Granulocyte # (Auto) 0.01 K/uL (0.00-0.02) Anion Gap 5.0 mmol/L (3-11) Est Creatinine Clear Calc Drug Dose 143.6 ml/min Estimated GFR () 149.7 Estimated GFR (Non- 129.1 BUN/Creatinine Ratio 15.1 (10-20) Calcium Level 8.7 mg/dl (8.5-10.1) ED Course 1899: Full history and physical exam was obtained 2129: Discussed case with Dr. Anderson, [facility]. She suggests that the patient has an outpatient follow up. She reports that until the patients surgery on January 19, the patient should continue take pain medication. Dr. anderson will update dr. javed with today's visit information. 2132: Upon reevaluation, the patient appeared to have improvement of her symptoms. Discussed tonight's findings with the patient. She verbalized agreement of the treatment plan. The patient was discharged home. Medical Decision Prior records/ancillary studies reviewed. Triage Nursing notes reviewed. Additional history obtained from patient. The patient's history was concerning for abdominal pain. Differential diagnosis: Etiologies such as ovarian cyst, ectopic , diverticulitis, UTI, pancreatitis, obstruction, mesenteric ischemia, aortic pathology, infections, inflammatory bowel disease, as well as others were entertained. Physical examination findings: As above. Diagnostics interpreted by me: The labs revealed nothing abnormal Imaging studies: as above Consultation: A consultation was placed with ACE Palomares. The case was discussed and diagnostics were reviewed. By the evaluation outlined above emergent etiologies such as appendicitis, diverticulitis, PUD, biliary pathology, UTI, pancreatitis, obstruction, mesenteric ischemia, aortic pathology, infections, inflammatory bowel disease, renal colic, as well as others were deemed relatively unlikely. The patient informed about the findings as listed above. All questions were answered and she was pleased with the treatment. Return instructions were outlined and the patient was discharged in stable condition. Referral: The patient was referred back to their OBGYN physician for follow-up in 2 to 3 days for a recheck of the current condition. Impression Primary Impression: Left lower quadrant pain Departure Information Dispostion Home / Self-Care Condition FAIR Referrals [facility] (PCP) Patient Instructions My [facility] Additional Instructions Take Ibuprofen or Tylenol as needed for pain, discomfort, and fevers. Do not drink alcohol or drive while taking prescription pain medication. Make a follow-up appointment with Dr. Javed for continued care and treatment. If you have an increasing pain, discomfort, fevers, or difficulty swallowing, difficulty breathing, chest pain, recurrent vomiting or diarrhea, come back to the Emergency Department. Please call OB offices earlier and tell them the findings from today's visit and that you would like to have your operation sooner. Resident Tracking Resident Involvement: Resident Care Provided Care Provided: Adult ED
[2017-01-12 19:41] LABS: BASO % 0.4 %; BASO ABS # 0.03 K/uL (0-0.2); COMPLETE YES; EOS % 0.8 %; HEMATOCRIT 32.8 % (37-47); IG% 0.1 %; LYMPH ABS # 1.58 K/uL (1.2-3.4); MEAN CELL VOLUME 87.9 fL (80-100); MEAN CORPUSCULAR HEMOGLOBIN 28.7 pg (25-34); MEAN CORPUSCULAR HGB CONC 32.6 g/dl (32-36); MEAN PLATELET VOLUME 10.5 fL (7.4-10.4); MONO % 10.5 %; NEUT % 66.2 %; PLATELET COUNT 164 K/uL (130-400); RED BLOOD COUNT 3.73 M/uL (4.2-5.4); WHITE BLOOD COUNT 7.17 K/uL (4.8-10.8)
[2017-01-12 19:59] LABS: BUN/CREATININE RATIO 15.1 (10-20); CALCIUM 8.7 mg/dl (8.5-10.1); CREATININE 0.63 mg/dl (0.60-1.20); POTASSIUM 3.8 mmol/L (3.5-5.1)
--- NOTE | 2017-01-12 20:27 | DIAGNOSTIC IMAGING REPORT ---
PELVIC ULTRASOUND, TRANSABDOMINAL AND TRANSVAGINAL HISTORY: Known paraovarian cyst 6.7 cm. Left lower quadrant pelvic pain COMPARISON: Pelvic ultrasound 01/10/2017. FINDINGS: The uterus and ovaries are within normal limits. Endometrial stripe measures 5 mm in thickness. Within the left adnexa there is again noted a 5.2 x 3.8 x 4.7 cm solid and cystic lesion. The 2 dominant cysts measures 2.8 and 2.3 cm. This also contains hyperechoic soft tissue, which could represent fat in the setting of a dermoid. Small amount of complex fluid within the pelvis. IMPRESSION: 1. Overall, no significant change compared to the prior study. 2. The uterus and ovaries are within normal limits. 3. No significant change in the 5.2 x 3.8 x 4.7 cm solid and cystic mass within the left adnexa. This could represent a dermoid. Follow-up nonemergent pelvis CT can be performed for further evaluation. 4. Small amount of complex fluid within the pelvis persists. Electronically signed by: Toby Westbrook M.D. 01/12/2017 8:26 PM Dictated Date/Time: 01/12/2017 8:21 PM
[2017-01-12 22:13] VITALS: BP 132/69; PULSE 63; O2SAT 98
--- NOTE | 2017-01-12 23:48 | EMERGENCY ROOM VISIT NOTE ---
History Report prepared by Joseph: Williams Bourne Under the Supervision of: Dr. Vipul Mansfield M.D. First contact with patient: 18:58 Chief Complaint: ABDOMINAL PAIN Stated Complaint: LOWER ABDOMINAL PAIN,ULTRASOUND,PARAOVARIUAN CYST Nursing Triage Summary: Pt reports left sided ovarian cysts. States pain is tolerable at 4/10 while on narcotics but severe when off. Pt currently taking norco to manage pain. Called OB/GYNs office and told to come to ER for repeat ultrasound to determine if pt will require surgery. History of Present Illness The patient is a 21 year old female who presents to the Emergency Room with complaints of constant left lower quadrant abdominal pain that started three days ago. She rates her discomfort as a 4/10 in severity. She describes her pain as a sharp sensation. The patient states that she was here two days ago and had an ultrasound, which showed a left sided ovarian cyst. She states that she was discharged with [place], which she admits she took at 0900. The patient states that today Dr. Javed called her after reading her reports. She states that Dr. Javed told her to come back to the ED to repeat the scans and see if there are any changes. The patient states that her abdominal pain is currently not as severe, but admits that it is worse when she is not taking her medications. The patient denies fever, vomiting, diarrhea, and vaginal bleeding or discharge. Source of History: patient Onset: three days ago Position: abdomen (LLQ) Symptom Intensity: 4/10 Quality: sharp Timing: constant Modifying Factors (Relieving): other ([place]) Associated Symptoms: No fevers, No vomiting, No diarrhea Review of Systems See HPI for pertinent positives & negatives. A total of 10 systems reviewed and were otherwise negative. Past Medical & Surgical Medical Problems: (1) Adnexal mass (2) Ovarian cyst Family History Patient reports no known family medical history. Social History Smoking Status: Never Smoker Housing Status: lives with roommate Occupation Status: [employer] student Current/Historical Medications Scheduled Ondasetron Odt (Zofran Odt), 4 MG SL Q6H Scheduled PRN Acetaminophen (Tylenol), 1,000 MG PO UD PRN for Pain Hydrocodone/Acetaminophen 5MG/325MG ([place] 5MG/325MG), 1-2 TABLET PO Q4H PRN for Pain Ibuprofen (Advil), 400 MG PO UD PRN for Pain Allergies Coded Allergies: No Known Allergies (Unverified , 01/12/17) Physical Exam Vital Signs Date Time Temp Pulse Resp B/P (MAP) Pulse Ox O2 Delivery O2 Flow Rate FiO2 01/12/17 22:13 63 15 132/69 98 Room Air 01/12/17 20:18 55 18 110/70 100 Room Air 01/12/17 18:52 36.8 98 18 116/67 98 Room Air Physical Exam Constitutional: Vital signs reviewed. Eyes: Pupils are equal round reactive to light. Conjunctiva are noninjected. ENT: Pharynx is clear without erythema or exudate. Mucous membranes are moist. Neck supple without meningeal signs. Respiratory: Clear to auscultation bilaterally. Breath sounds are equal bilaterally. Cardiovascular: Regular rate and rhythm. No rubs or gallops. GI: Soft, nondistended with tenderness on the left side of the suprapubic region. No rebound. Bowel sounds are present. Musculoskeletal: No peripheral edema. Integumentary: No cyanosis. Neurological: The patient is awake and alert. No focal deficits. Psychiatric: Normal affect. Medical Decision & Procedures ER Provider Diagnostic Interpretation: Radiology results as stated below per my review and the radiologist's interpretation: PELVIC ULTRASOUND, TRANSABDOMINAL AND TRANSVAGINAL HISTORY: Known paraovarian cyst 6.7 cm. Left lower quadrant pelvic pain COMPARISON: Pelvic ultrasound 01/10/2017. FINDINGS: The uterus and ovaries are within normal limits. Endometrial stripe measures 5 mm in thickness. Within the left adnexa there is again noted a 5.2 x 3.8 x 4.7 cm solid and cystic lesion. The 2 dominant cysts measures 2.8 and 2.3 cm. This also contains hyperechoic soft tissue, which could represent fat in the setting of a dermoid. Small amount of complex fluid within the pelvis. IMPRESSION: 1. Overall, no significant change compared to the prior study. 2. The uterus and ovaries are within normal limits. 3. No significant change in the 5.2 x 3.8 x 4.7 cm solid and cystic mass within the left adnexa. This could represent a dermoid. Follow-up nonemergent pelvis CT can be performed for further evaluation. 4. Small amount of complex fluid within the pelvis persists. Electronically signed by: Toby Westbrook M.D. 01/12/2017 8:26 PM Dictated Date/Time: 01/12/2017 8:21 PM Laboratory Results 01/12/17 19:22 Red Blood Count 3.73, Mean Corpuscular Volume 87.9, Mean Corpuscular Hemoglobin 28.7, Mean Corpuscular Hemoglobin Concent 32.6, Mean Platelet Volume 10.5, Neutrophils (%) (Auto) 66.2, Lymphocytes (%) (Auto) 22.0, Monocytes (%) (Auto) 10.5, Eosinophils (%) (Auto) 0.8, Basophils (%) (Auto) 0.4, Neutrophils # (Auto ) 4.74, Lymphocytes # (Auto) 1.58, Monocytes # (Auto) 0.75, Eosinophils # (Auto ) 0.06, Basophils # (Auto) 0.03 01/12/17 19:22 Test 01/12/17 19:22 White Blood Count 7.17 K/uL (4.8-10.8) Red Blood Count 3.73 M/uL (4.2-5.4) Hemoglobin 10.7 g/dL (12.0-16.0) Hematocrit 32.8 % (37-47) Mean Corpuscular Volume 87.9 fL (80-100) Mean Corpuscular Hemoglobin 28.7 pg (25-34) Mean Corpuscular Hemoglobin Concent 32.6 g/dl (32-36) Platelet Count 164 K/uL (130-400) Mean Platelet Volume 10.5 fL (7.4-10.4) Neutrophils (%) (Auto) 66.2 % Lymphocytes (%) (Auto) 22.0 % Monocytes (%) (Auto) 10.5 % Eosinophils (%) (Auto) 0.8 % Basophils (%) (Auto) 0.4 % Neutrophils # (Auto) 4.74 K/uL (1.4-6.5) Lymphocytes # (Auto) 1.58 K/uL (1.2-3.4) Monocytes # (Auto) 0.75 K/uL (0.11-0.59) Eosinophils # (Auto) 0.06 K/uL (0-0.5) Basophils # (Auto) 0.03 K/uL (0-0.2) RDW Standard Deviation 42.9 fL (36.4-46.3) RDW Coefficient of Variation 13.4 % (11.5-14.5) Immature Granulocyte % (Auto) 0.1 % Immature Granulocyte # (Auto) 0.01 K/uL (0.00-0.02) Anion Gap 5.0 mmol/L (3-11) Est Creatinine Clear Calc Drug Dose 143.6 ml/min Estimated GFR () 149.7 Estimated GFR (Non- 129.1 BUN/Creatinine Ratio 15.1 (10-20) Calcium Level 8.7 mg/dl (8.5-10.1) Laboratory results as reviewed by me. ED Course 1912: The patient was evaluated in room A03. A complete history and physical exam was performed. 2129: Dr. Josette Sanchez discussed the patients case with Dr. Cristina, [facility] TELEVISION TECHNICIAN. He suggests that the patient has an outpatient follow up. He reports that until the patients surgery on January 19, the patient should take pain medication. 2132: Upon reevaluation, the patient appeared to have improvement of her symptoms. Discussed tonight's findings with the patient. She verbalized agreement of the treatment plan. The patient was discharged home. Medical Decision This is a 21-year-old female presents with left pelvic pain and a known left adnexal mass. I did perform a limited focused review of portions of the patient 's old chart on the electronic medical record. The patient was here two days ago for pelvic pain on the left side. Ultrasound showed 6.7 cm left adnexal mass with two separate cysts 3 cm in size. Blood flow was normal. Case with discussed with OB who recommended outpatient follow up. I did evaluate the patient as noted above. Patient was sent here by her SCIENTIFIC HELPER doctor for a repeat ultrasound for potential hospitalization versus outpatient treatment. She is not having any significant pain at this time. She took her [place] earlier today and took some Motrin prior to arrival. IV access was established. I did order and review the patient's blood work as noted in the electronic medical record. I did order a pelvic ultrasound. I did review the images myself as well as the radiology report as described above. The ultrasound didn't show any significant change. The case was discussed with gynecology by the resident. She did not feel the patient needed to be hospitalized and so she was discharged home for outpatient care. Resident Physician Supervision Note: I did evaluate and examine this patient myself. I did guide management for the patient. I agree with the resident's Dr. Josette Sanchez assessment as discussed. Please see the resident's dictation for further details. Medication Reconcilliation Current Medication List: was personally reviewed by me Blood Pressure Screening Patient's blood pressure: Normal blood pressure Consults Time Called: 2129 Consulting Physician: Dr. Cristina, [facility] TELEVISION TECHNICIAN Returned Call: 2129 Dr. Josette Sanchez discussed the patients case with Dr. Cristina, [facility] OB/ SCIENTIFIC HELPER. He suggests that the patient has an outpatient follow up. He reports that until the patients surgery on January 19, the patient should take pain medication. Impression Primary Impression: Ovarian cyst Additional Impression: Anemia Scribe Attestation The scribe's documentation has been prepared under my direct and personally reviewed by me in its entirety. I confirm that the note above accurately reflects all work, treatment, procedures, and medical decision making performed by me. Departure Information Dispostion Home / Self-Care Referrals [facility] (PCP) Forms HOME CARE DOCUMENTATION FORM, IMPORTANT VISIT INFORMATION Patient Instructions My [facility] Additional Instructions Take Ibuprofen or Tylenol as needed for pain, discomfort, and fevers. Do not drink alcohol or drive while taking prescription pain medication. Make a follow-up appointment with Dr. Javed for continued care and treatment. If you have an increasing pain, discomfort, fevers, or difficulty swallowing, difficulty breathing, chest pain, recurrent vomiting or diarrhea, come back to the Emergency Department. Please call OB offices earlier and tell them the findings from today's visit and that you would like to have your operation sooner. Problem Qualifiers Primary Impression: Ovarian cyst Laterality: left Qualified Codes: N83.202 - Unspecified ovarian cyst, left side Additional Impression: Anemia Anemia type: unspecified type Qualified Codes: D64.9 - Anemia, unspecified
== END 2017-01-12 22:24 | disposition home or self-care (01) ==
LOC: C.EDB 18:52 → C.EDA 22:24
DX: R10.32 Left lower quadrant pain (principal)

== ENCOUNTER 2017-01-20 08:48 | Day surgery (SDC) | payer BC ==
[2017-01-18 08:25] VITALS: BMI 23.0
--- NOTE | 2017-01-18 08:52 | PAT Medication Instructions ---
Service Date Jan 18, 2017. Current Home Medication List Hydrocodone/Acetaminophen 5MG/325MG ([place] 5MG/325MG), 1-2 TABLET PO Q4H PRN for N Ibuprofen (Advil), 600 MG PO PRN PRN for Pain Medication Instructions For Your Scheduled Surgery - Check with surgeon for instructions: Ibuprofen (Advil), 600 MG PO PRN PRN for Pain - Take the following medications the morning of surgery with a sip of water: Hydrocodone/Acetaminophen 5MG/325MG ([place] 5MG/325MG), 1-2 TABLET PO Q4H PRN for N (okay to take up to 4 hours prior to surgery if needed) If you have any questions please call us at [phone] or [phone] or [phone]
[2017-01-18 10:12] LABS: BASO % 1.1 %; BASO ABS # 0.05 K/uL (0-0.2); EOS ABS # 0.09 K/uL (0-0.5); LYMPH % 33.2 %; LYMPH ABS # 1.52 K/uL (1.2-3.4); MEAN CELL VOLUME 88.7 fL (80-100); MEAN CORPUSCULAR HEMOGLOBIN 28.8 pg (25-34); MEAN CORPUSCULAR HGB CONC 32.4 g/dl (32-36); MEAN PLATELET VOLUME 10.3 fL (7.4-10.4); MONO % 7.9 %; MONO ABS # 0.36 K/uL (0.11-0.59); NEUT % 55.8 %; NEUT ABS # 2.56 K/uL (1.4-6.5); PLATELET COUNT 259 K/uL (130-400); RED CELL DISTRIBUTION WIDTH SD 42.3 fL (36.4-46.3); WHITE BLOOD COUNT 4.58 K/uL (4.8-10.8)
[~2017-01-20] VITALS: Ht 172.7 cm; Wt 69.3 kg
[~2017-01-20 08:48] MED LIST changes: -ACET-1256 PO; +CEFAZOLIN 2000MG IV PUSH 10 ML IV SCH; +LACTATED RINGER'S 1000ML 1,000 ML IV SCH; -ONDA4TAB10 SL
[2017-01-20 09:17] VITALS: BP 113/65; PULSE 65; TEMP 37; O2SAT 100; BMI 23.0
[2017-01-20 09:31] VITALS: BP 113/65; TEMP 37; O2SAT 100; Ht 172.7 cm; Wt 69.3 kg
[2017-01-20 10:25] LABS: BASO % 1.1 %; BASO ABS # 0.06 K/uL (0-0.2); EOS % 1.5 %; EOS ABS # 0.08 K/uL (0-0.5); HEMATOCRIT 33.5 % (37-47); HEMOGLOBIN 11.2 g/dL (12.0-16.0); IG# 0.01 K/uL (0.00-0.02); LYMPH ABS # 1.66 K/uL (1.2-3.4); MEAN CELL VOLUME 87.2 fL (80-100); MEAN CORPUSCULAR HEMOGLOBIN 29.2 pg (25-34); MEAN PLATELET VOLUME 9.9 fL (7.4-10.4); MONO % 8.4 %; MONO ABS # 0.45 K/uL (0.11-0.59); NEUT % 57.8 %; PLATELET COUNT 254 K/uL (130-400); RED CELL DISTRIBUTION WIDTH CV 13.1 % (11.5-14.5); WHITE BLOOD COUNT 5.36 K/uL (4.8-10.8)
[2017-01-20 10:29] LABS: MEAN CORPUSCULAR HGB CONC 33.4 g/dl (32-36)
--- NOTE | 2017-01-20 11:34 | History & Physical Bridge Note ---
H&P Re-Evaluation Bridge Note: I have examined the patient, reviewed the History & Physical and in the interval since the performance of the History & Physical I have noted the following changes of clinical significance: No changes noted
[2017-01-20] MEDS ORDERED: FENTANYL CITRATE INJ 50 MCG/1 ML 2 ML VIAL ONE ×2 (11:35→13:45)
[2017-01-20] MEDS ORDERED: MIDAZOLAM HCL 1 MG/ML 2ML VIAL ONE (11:35)
[2017-01-20] MEDS ORDERED: BUPIVACAINE 0.5 % 5 MG/1 ML MPF 30ML VIAL ONE (12:37)
[2017-01-20] MEDS ORDERED: KETOROLAC TROMETHAMINE 30 MG/ML VIAL IV. PRN (12:45)
[2017-01-20] MEDS ORDERED: ONDANSETRON INJ 2 MG/ML 2 ML VIAL IV PRN (12:45)
[2017-01-20] MEDS ORDERED: ATROPINE SULFATE 0.1 MG/ML 5ML SYR IV PRN (12:45)
[2017-01-20] MEDS ORDERED: OXIDIZED CELLULOSE 1 EA TOP ONE ×2 (13:39→14:03)
[2017-01-20] MEDS ORDERED: ONDANSETRON INJ 2 MG/ML 2 ML VIAL ONE (13:53)
[2017-01-20] MEDS ORDERED: GLYCOPYRROLATE INJ 0.2 MG/ML VIAL ONE (13:53)
[2017-01-20] MEDS ORDERED: NEOSTIGMINE METHYLSULFATE 5 MG/5 ML SYR ONE (13:53)
[2017-01-20] MEDS ORDERED: METOCLOPRAMIDE HCL INJ 5 MG/ML 2 ML VIAL ONE (13:53)
[2017-01-20] MEDS ORDERED: LIDOCAINE HCL 2% 2 ML VIAL (20MG/ML) ONE (13:53)
[2017-01-20] MEDS ORDERED: ROCURONIUM BROMIDE 10 MG/ML 5 ML VIAL IV ONE (13:53)
[2017-01-20] MEDS ORDERED: PROPOFOL IV EMULSION 10 MG/ML 20 ML VIAL IV ONE (13:53)
[2017-01-20] MEDS: FENTANYL CITRATE INJ 50 MCG/1 ML 2 ML VIAL IV PRN ×2 (14:45→14:55)
[2017-01-20] MEDS ORDERED: HYDR-5688 PO (14:48)
[2017-01-20] MEDS ORDERED: IBUP600T44 PO (14:48)
--- NOTE | 2017-01-20 14:50 | Discharge Instructions ---
Discharge Instructions Date of Service Jan 20, 2017. Visit Reason for Visit: Pelvic Pain; Left Adnexal Complex Cyst Discharge Discharge Diagnosis / Problem: Laparoscopic left salpingectomy with extensive lysis of adhesions Discharge Goals Goal(s): Decrease discomfort Activity Recommendations Activity Limitations: per Instructions/Follow-up section Anesthesia . Post Anesthesia Instructions: If you have had General Anesthesia or IV Sedation: * Do not drive today. * Resume driving when surgeon permits. * Do not make important decisions or sign legal documents today. * Call surgeon for: 1. Temperature elevations greater than 101 degrees F. 2. Uncontrollable pain. 3. Excessive bleeding. 4. Persistent nausea and vomiting. 5. Medication intolerance (nausea, vomiting or rash). * For nausea and vomiting use only clear liquids such as: tea, soda, bouillon until nausea subsides, then gradually increase diet as tolerated. * If you have any concerns or questions, call your surgeon's office. If physician is unavailable and it is an emergency, call 911 or go to the nearest emergency room. . Instructions / Follow-Up Instructions / Follow-Up ACTIVITY RECOMMENDATIONS: * Rest the first 2-3 days. You should be back to your normal activity levels by day 3. * No heavy lifting for 3 weeks. * No intercourse, tampons or douching for 4 weeks. * You may shower the next day. * Do not drive anytime that you are taking narcotic pain medicines. RETURN TO SCHOOL/WORK: DIET: Nausea may occur in the immediate post-operative period. If so, take clear liquids such as tea, bouillon, apple juice until all nausea has subsided, then resume usual diet. MEDICATIONS: Resume previous medications unless instructed otherwise by your surgeon. Ibuprofen 200mg 2-3 tablets every 4-6 hours as needed -- OR -- Aleve 2 tablets every 8-12 hours as needed for post-operative discomfort Medications are over the counter. Tylenol may be used if above medications are contraindicated or not preferred. Medication should be taken with food or milk. Do not take on an empty stomach. SPECIAL CARE INSTRUCTIONS: * Check temperature twice daily for one week. report any elevation over 101 degrees. * You may experience some vagina spotting and/or bleeding. This is normal for 1 -2 weeks and should not be heavier than a normal period. If it is unusual in amount, call your physician. * Post-operative discomfort may consist of a sore throat, a "bloated" feeling and pain in the shoulders. these are normal symptoms, which usually only last for 2-3 days. * Remove band-aids tomorrow and shower. There is no need to replace band-aids unless there is drainage or discomfort. FOLLOW UP VISIT: Call your doctor's office for a post-operative 2 week visit if not already scheduled. Diet Recommendations Recommended Home Diet: no limitations, resume previous diet Procedures Procedures Performed: Laparoscopy, Left Salpingectomy with Cyst Removal, Extensive lysis of adhesions Pending Studies Studies pending at discharge: no Medical Emergencies . Who to Call and When: Medical Emergencies: If at any time you feel your situation is an emergency, please call 911 immediately. . Non-Emergent Contact Non-Emergency issues call your: Primary Care Provider, Liability Claims Examiner . . "Provider Documentation" section prepared by Victor M Peterson. . [place] Drug Monitoring Program Search Results: patient reviewed within database, no issues identified
--- NOTE | 2017-01-20 14:58 | [facility] Post Operative Brief Note ---
Immediate Operative Summary Operative Date Jan 20, 2017. Pre-Operative Diagnosis Left Adnexal Complex Cyst Post-Operative Diagnosis Left Adnexal Complex Cyst Procedure(s) Performed Laparoscopy, Left Salpingectomy with Cyst Removal, Extensive lysis of adhesions Surgeon Dr. Peterson Semiconductor Processing Technician Surgeon(s) Dr. Rodarte Estimated Blood Loss 20 cc Findings Upon laparoscopic exam the bowel was tightly adhered to the posterior uterine wall. Once these adhesions were lysed the posterior cul-de-sac was able to be visualized. The left fallopian tube was enlarged containing a cystic structure and was twisted multiple times. The left tube was black and most likely not viable. The tube was removed laparoscopically. The left ovary was grossly normal and viable.Once the left tube and cyst were removed the posterior culdesac was irrigated. The right fallopian tube was adhered to the posterior wall which was carefully freed. The right ovary and tube were essentially normal. Once the cul-de-sac was cleared intercede was placed over the entire cul -de-sac, bowel and posterior uterus. Excellent hemostasis noted at the completion of the procedure. Fluids (cc crystalloids) 1500 Specimens Left fallopian tube with cyst Drains None Anesthesia General Complication(s) None Disposition Recovery Room / PACU
[2017-01-20] MEDS ORDERED: MEPERIDINE HCL 25 MG/ML CARP IV PRN (15:00)
--- NOTE | 2017-01-20 15:08 | Anesthesiology Progress Note ---
Anesthesia Post Op Note Date & Time Jan 20, 2017 at 15:08 Vital Signs Vital Signs Past 12 Hours Date Time Temp Pulse Resp B/P (MAP) Pulse Ox O2 Delivery O2 Flow Rate FiO2 01/20/17 14:55 60 21 123/77 96 Room Air 01/20/17 14:45 68 20 117/66 97 Room Air 01/20/17 14:35 36.2 75 20 97 Room Air 01/20/17 09:31 37 18 113/65 (81) 100 Room Air 01/20/17 09:17 37 65 18 113/65 (81) 100 Room Air Notes Mental Status: alert / awake / arousable, participated in evaluation Pt Amnestic to Procedure: Yes Nausea / Vomiting: adequately controlled Pain: adequately controlled Airway Patency, RR, SpO2: stable & adequate BP & HR: stable & adequate Hydration State: stable & adequate Anesthetic Complications: no major complications apparent
[2017-01-20 15:26] VITALS: BP 122/74; PULSE 55; TEMP 37; O2SAT 98
--- NOTE | 2017-01-20 15:30 | OPERATIVE REPORT ---
DATE OF OPERATION: 01/20/2017 PREOPERATIVE DIAGNOSES: 1. Acute pelvic pain. 2. Left adnexal complex cyst. POSTOPERATIVE DIAGNOSES: 1. Acute pelvic pain. 2. Left adnexal complex cyst. 3. Torsion of left fallopian tube and cyst and extensive bowel and omental adhesions. OPERATIVE PROCEDURE: Laparoscopic left salpingectomy with cyst removal and extensive lysis of adhesions. SURGEON: Dr. Victor M Peterson. BIOFUELS PROCESSING TECHNICIAN: Dr. Florian Alcala. ANESTHESIA: General. ESTIMATED BLOOD LOSS: 20 mL. IV FLUIDS: 1500 mL crystalloids. URINE OUTPUT: 300 mL clear yellow urine. SPECIMENS: Left fallopian tube with cyst. DRAINS: None. COMPLICATIONS: None. DISPOSITION: Recovery room. OPERATIVE FINDINGS: Upon laparoscopic exam, the bowel was tightly adhered to the posterior uterine wall. Once these adhesions were carefully lysed and pulled away from the posterior cul-de-sac, the cul-de-sac was able to be visualized. It was noted that the left fallopian tube was enlarged, containing a cystic structure and was twisted multiple times. The left tube was essentially nonviable and was black. The tube was removed laparoscopically. Once the left fallopian tube was removed, it was noted that the left ovary was grossly normal and viable. Once the left tube and cyst were removed, the posterior cul-de-sac was irrigated and it was noted that the right fallopian tube was adhered to the posterior wall as well. It was carefully freed away and placed back within its normal anatomic position. The right ovary and fallopian tube were essentially grossly normal. Once the cul-de-sac was cleared, Interceed was placed over the entire cul-de-sac, bowel and posterior uterus to ensure adhesions do not reform. Excellent hemostasis was noted at the completion of the procedure. OPERATIVE PROCEDURE IN DETAIL: The patient was taken to the operating room, where general anesthesia was administered. Once anesthesia was found to be adequate, the patient was placed in the dorsal lithotomy position and was prepped and draped in a manner appropriate for the procedure. The bladder was then drained of clear yellow urine. A weighted speculum was placed into the vagina and the anterior lip of the cervix was grasped with an Allis clamp. A [place] uterine manipulator was then placed within the uterus in an anteverted fashion. The weighted speculum was then removed from the vagina. The patient was then ready for the laparoscopic portion of the procedure. Attention was directed towards the abdomen, where 0.5% Marcaine was injected below the umbilicus. An 11-mm skin incision was made subumbilically in a horizontal fashion. A Veress needle was then placed within the abdomen. Normal saline was injected with no fecal content aspirated. Pneumoperitoneum was then created. The Veress needle was then removed and an 11-mm trocar was placed within the abdomen under direct laparoscopic visualization. The pneumoperitoneum was maintained. A second 5-mm skin incision was made on the right side of the abdomen and a 5-mm trocar was placed within the abdomen under direct laparoscopic visualization. A third 11-mm skin incision was made 2 fingerbreadths above the pubic symphysis at midline in a horizontal fashion. An 11-mm trocar was then placed within the abdomen under direct laparoscopic visualization. The patient was placed in a steep Trendelenburg position. The bowel was displaced superiorly away from the pelvis. A thorough examination of the abdomen and pelvis was then performed. It was noted that the bowel and omentum were tightly adhered to the posterior uterine wall. The adhesions were carefully cauterized and lysed with the EndoShears, pushing the bowel away from the posterior cul-de-sac. Once the bowel adhesions were freed, the bowel was displaced superiorly. It was noted that the left fallopian tube was twisted multiple times and was enlarged. Utilizing the LigaSure, the left fallopian tube was carefully cauterized and lysed and freed from its attachments. It was noted that the left ovary was grossly normal and viable. The specimen was then placed within inside of the EndoCatch bag and removed from the suprapubic trocar. The incision had to be extended bilaterally to accommodate removal of the specimen. Once the specimen was removed, the fascia of the suprapubic incision was closed with 0 Vicryl suture in a continuous running fashion. The pneumoperitoneum was created once again. Attention was directed towards the left adnexa, which was noted to be hemostatic. Attention was then directed towards the posterior cul-de-sac, which was irrigated with warm saline solution. It was noted that the right fallopian tube was adhered to the posterior cul-de-sac as well. It was carefully lysed from its attachment points and freed and placed back within its normal anatomic position. The posterior cul-de-sac was irrigated with warm saline solution. Interceed was then placed within the cul-de-sac and was carefully placed over the posterior uterus and over the bowel as well to ensure adhesions do not reform. Excellent hemostasis was noted throughout the entire pelvis. At this point, the procedure was found to be complete. All instruments were removed from the abdomen and as much CO2 gas was allowed to percolate through open cannulas. The cannulas were then removed. The fascia of the umbilical incision was closed with 0 Vicryl suture in a [id number] interrupted fashion. All 3 skin incisions were then closed with 4-0 Monocryl in a subcuticular fashion. Excellent hemostasis was noted through all tissue layers and at all 3 incisions. The [place] uterine manipulator was then removed from the uterus with excellent hemostasis noted. All sponge and instrument counts were found to be correct x2. The patient tolerated the procedure well and was sent to recovery with stable vital signs. I attest to the content of the Intraoperative Record and any orders documented therein. Any exception s are noted below.
[2017-01-20] MEDS ORDERED: ONDANSETRON INJ 2 MG/ML 2 ML VIAL IV ONE (15:53)
[2017-01-20] MEDS ORDERED: NURSING VERBAL MED ORDER ONE ×2 (16:00)
[2017-01-20] MEDS ORDERED: HYDROCODONE/ACETAMOPHEN 5/325MG TAB PO ONE (16:15)
[2017-01-20 16:16] VITALS: BP 108/66; PULSE 56; TEMP 36.9; O2SAT 96
[2017-01-20 16:40] VITALS: BP 111/63; PULSE 63; TEMP 36.8; O2SAT 99
[2017-01-20 17:35] VITALS: BP 114/71; PULSE 58; TEMP 36.4; O2SAT 100
== END 2017-01-20 18:05 | disposition home or self-care (01) ==
LOC: C.ACU 08:48
PROVIDERS: ATTEND Obstetrics & Gynecology
DX: E27.8 Other specified disorders of adrenal gland (principal); N83.202 Unspecified ovarian cyst, left side; N83.522 Torsion of left fallopian tube; N73.6 Female pelvic peritoneal adhesions (postinfective)